=== PATIENT | male | born 1950 | race American Indian/Alaskan Native ===

== ENCOUNTER 2017-02-02 04:08 | Emergency (ER) | payer MEDICARE, OTHER ==
[2017-02-02] MEDS ORDERED: Albuterol/Ipratropium 3.0-0.5 MG/3 ML Neb Soln NEB ONE (04:23)
--- NOTE | 2017-02-02 04:29 | EDM.PDOC ---
ED HPI GENERAL MEDICAL PROBLEM - General Chief Complaint: Respiratory Problem Stated Complaint: DIFFICULTY BREATHING Time Seen by Provider: 02/02/17 04:24 Source of Information: Reports: Patient History Limitations: Reports: No Limitations - History of Present Illness INITIAL COMMENTS - FREE TEXT/NARRATIVE: states having problem breathing all week, states unable to cough because unable get air out feels like breathing through a straw. saw clinic yesterday taking z- jyoti+albut inhaler+phen/cod+tessalon. not getting any better seems to be getting worse tonight. denies CP. appetite normal. - Related Data Allergies Allergy/AdvReac Type Severity Reaction Status Date / Time No Known Allergies Allergy Verified 02/02/17 04:16 ED ROS GENERAL - Review of Systems Review Of Systems: ROS reveals no pertinent complaints other than HPI. ED EXAM, GENERAL - Physical Exam Exam: See Below Exam Limited By: No Limitations General Appearance: Alert, WD/WN, Mild Distress, Other (looks distraught) Ears: Hearing Grossly Normal Throat/Mouth: Normal Voice, No Airway Compromise, Inflammation Head: Atraumatic Neck: Non-Tender, Full Range of Motion Respiratory/Chest: No Respiratory Distress, No Accessory Muscle Use, Rhonchi. No: Decreased Breath Sounds, Stridor Course - Vital Signs Last Recorded V/S: Last Vital Signs Temp 36.3 C 02/02/17 04:12 Pulse 62 02/02/17 04:12 Resp 18 02/02/17 04:12 BP 125/81 02/02/17 04:12 Pulse Ox 99 02/02/17 04:12 - Orders/Labs/Meds Orders: Active Orders 24 hr Category Date Time Status RT Aerosol Therapy [RC] ASDIRECTED Care 02/02/17 04:23 Active Chest 2V [CR] Urgent Exams 02/02/17 04:23 Taken Meds: Medications Discontinued Medications Generic Name Dose Route Start Last Admin Trade Name Freq PRN Reason Stop Dose Admin Albuterol/Ipratropium 3 ml 02/02/17 04:23 02/02/17 04:28 Duoneb 3.0-0.5 Mg/3 Ml NEB 02/02/17 04:24 3 ml ONETIME ONE Administration Methylprednisolone Sodium Succinate 125 mg 02/02/17 05:15 Solu-Medrol IM 02/02/17 05:16 ONETIME ONE Penicillin G Procaine/Benzathine 1.2 millunits 02/02/17 05:01 02/02/17 05:07 Bicillin C-R 600/600 IM 02/02/17 05:02 1.2 millunits ONETIME ONE Administration - Re-Assessments/Exams Free Text/Narrative Re-Assessment/Exam: 02/02/17 05:16 results discussed with pt who is feeling better post duoneb. Departure - Departure Time of Disposition: 05:17 Disposition: Home, Self-Care 01 Condition: Good Clinical Impression: Strep throat, Bronchospasm with bronchitis, acute - Discharge Information Instructions: Sore Throat, [id number] Forms: ED Department Discharge Additional Instructions: 1) continue current meds 2) don't sleep flat at night 3) avoid solid foods and scratchy foods 4) recheck as needed rx given; medrol dospak - My Orders Last 24 Hours: My Active Orders 02/02/17 04:23 RT Aerosol Therapy [RC] ASDIRECTED Chest 2V [CR] Urgent - Assessment/Plan Last 24 Hours: My Active Orders 02/02/17 04:23 RT Aerosol Therapy [RC] ASDIRECTED Chest 2V [CR] Urgent
[2017-02-02] MEDS ORDERED: Penicillin G Benzathine/Procaine 600-600 1.2 Millunits/2 ML Syringe IM ONE (05:01)
[2017-02-02] MEDS ORDERED: methylPREDNISolone Sodium Succinate 125 MG/2 ML SDV IM ONE (05:15)
== END 2017-02-02 05:38 | disposition home or self-care (01) ==
LOC: DL.ED 04:08
DX: J20.9 Acute bronchitis, unspecified (principal); J02.0 Streptococcal pharyngitis
CPT/HCPCS: 71020; 87430; 94640; 96372; 99285; J0558; J2930; 99283

== ENCOUNTER 2019-03-07 10:04 | Emergency (ER) | payer MEDICARE, OTHER ==
[2019-03-07 10:53] LABS: ANION GAP 12.4; CHLORIDE,CL 100 mmol/L (101-111); SODIUM,NA 135 mmol/L (135-145)
--- NOTE | 2019-03-07 10:53 | CT ---
EXAMINATION: Head wo Cont SEX: Male AGE: 68 years CLINICAL HISTORY: 68-year-old 217 pound hypertensive male severe left frontal HEADACHE, over the eye (blood pressure 165/91) who had MRI of the brain 26 January 2011 ("microvascular ischemia cerebral white matter") Scan technique: Volume acquisition of data emergency unenhanced CT scan of the head and brain obtained with patient lying supine on the Siemens multislice scanner [place], [place]. All data archived in the PACS system for storage, reformatting axial/sagittal/coronal planes and study (bone/brain windows). Interpretation: 1. Symmetric atrophy with underlying mirror-image normal ventricular system and scattered microvascular ischemic lesions periventricular white matter both cerebral hemispheres UNCHANGED except for modalities since MRI exam 26 January 2011. 2. No new supratentorial or posterior fossa mass lesion. No hydrocephalus. Physiologic calcifications. 3. No new acute infarct or edema, encephalomalacia, or arachnoid cyst. 4. No sign of acute intracerebral/intraventricular/subarachnoid bleed. 5. Symmetric clear pneumatization of the paranasal and mastoid sinuses. Uniformly thick bony calvarium without sign of skull fracture, underlying brain contusion or epidural/subdural hematoma. 6. Cerebellum and brainstem unremarkable. INTERPRETATION: Chronic microvascular ischemic changes. Otherwise negative exam for age. No new intracranial mass, signs of hydrocephalus, or bleed (compared to MRI exam January 2011). 1. CONCLUSION:
--- NOTE | 2019-03-07 11:27 | EDM.PDOC ---
Scribed by Sarah Jesus 03/07/19 1049 for Chaim Stock PA ED HPI GENERAL MEDICAL PROBLEM - General Chief Complaint: Headache Stated Complaint: HEADACHE Time Seen by Provider: 03/07/19 10:15 Source of Information: Reports: Patient, RN, RN Notes Reviewed History Limitations: Reports: No Limitations - History of Present Illness INITIAL COMMENTS - FREE TEXT/NARRATIVE: Patient is a 68-year-old male who presents to the ER with an intermittent left frontal/temporal headache. This started about one month ago. The patient reports some lightheadedness today. Today, the patient reports he took an Advil x1 and Tylenol X1 about 4-5 hours ago. The patient initially went to the walk in clinic, but was sent to the ED. Onset: Gradual Duration: Constant Location: Reports: Head Quality: Reports: Ache Severity: Mild Improves with: Reports: None Worsens with: Reports: None Associated Symptoms: Reports: No Other Symptoms Headache Pain Score (Numeric/FACES): 4 - Related Data Allergies Allergy/AdvReac Type Severity Reaction Status Date / Time No Known Allergies Allergy Verified 03/07/19 10:14 Home Meds: Home Meds Lisinopril 20 mg PO DAILY 03/07/19 [History] Metoprolol Tartrate 25 mg PO BID 03/07/19 [History] Rosuvastatin [Crestor] 20 mg PO DAILY 03/07/19 [History] Past Medical History HEENT History: Reports: Cataract Cardiovascular History: Reports: High Cholesterol, Hypertension Respiratory History: Reports: None Gastrointestinal History: Reports: None Genitourinary History: Reports: None Musculoskeletal History: Reports: None Neurological History: Reports: None Psychiatric History: Reports: None Endocrine/Metabolic History: Reports: None Hematologic History: Reports: None Immunologic History: Reports: None Oncologic (Cancer) History: Reports: None Dermatologic History: Reports: None - Infectious Disease History Infectious Disease History: Reports: None - Past Surgical History Head Surgeries/Procedures: Reports: None Social & Family History - Family History Family Medical History: Noncontributory - Tobacco Use Smoking Status *Q: Never Smoker Second Hand Smoke Exposure: No - Recreational Drug Use Recreational Drug Use: No ED ROS GENERAL - Review of Systems Review Of Systems: Comprehensive ROS is negative, except as noted in HPI. - Physical Exam Exam: See Below Exam Limited By: No Limitations General Appearance: Alert, WD/WN, No Apparent Distress Eye Exam: Bilateral Eye: EOMI, Normal Inspection, PERRL Ears: Normal External Exam, Normal Canal, Hearing Grossly Normal, Normal TMs Nose: Normal Inspection, Normal Mucosa, No Blood Throat/Mouth: Normal Inspection, Normal Lips, Normal Teeth, Normal Gums, Normal Oropharynx, Normal Voice, No Airway Compromise Head Exam: Atraumatic, Normocephalic Neck: Normal Inspection, Supple, Non-Tender, Full Range of Motion Respiratory/Chest: No Respiratory Distress, Lungs Clear, Normal Breath Sounds, No Accessory Muscle Use, Chest Non-Tender Cardiovascular: Normal Peripheral Pulses, Regular Rate, Rhythm, No Edema, No Gallop, No JVD, No Murmur, No Rub GI/Abdominal: Normal Bowel Sounds, Soft, Non-Tender, No Organomegaly, No Distention, No Abnormal Bruit, No Mass (Male) Exam: Deferred Rectal (Males) Exam: Deferred Neuro Exam (Abbreviated): Alert, Oriented, CN II-XII Intact, Normal Cognition, Normal Gait, Normal Reflexes, No Motor/Sensory Deficits Back Exam: Normal Inspection, Full Range of Motion, NT Extremities: Normal Inspection, Normal Range of Motion, Non-Tender, No Pedal Edema, Normal Capillary Refill Psychiatric: Normal Affect, Normal Mood Skin Exam: Warm, Dry, Intact, Normal Color, No Rash Course - Vital Signs Last Recorded V/S: Last Vital Signs Temp 35.7 C 03/07/19 10:07 Pulse 59 L 03/07/19 10:07 Resp 18 03/07/19 10:07 BP 165/91 H 03/07/19 10:07 Pulse Ox 97 03/07/19 10:07 - Orders/Labs/Meds Orders: Medication Orders Ketorolac Tromethamine (Toradol) 30 mg IM ONETIME ONE Stop: 03/07/19 11:24 Labs: Laboratory Tests 03/07/19 03/07/19 03/07/19 Range/Units 10:30 10:30 10:30 WBC 6.9 (5.0-10.0) 10^3/uL RBC 5.13 (4.6-6.2) 10^6/uL Hgb 15.8 (14.0-18.0) g/dL Hct 46.5 (40.0-54.0) % MCV 90.6 (80-100) fL MCH 30.8 (27.0-34.0) pg MCHC 34.0 (33.0-35.0) g/dL Plt Count 184 (150-450) 10^3/uL Neut % (Auto) 43.2 (42.2-75.2) % Lymph % (Auto) 45.5 (20.5-50.1) % [place] % (Auto) 7.1 (2-8) % Eos % (Auto) 3.2 H (1.0-3.0) % Baso % (Auto) 1.0 (0.0-1.0) % ESR 6 (0-15) mm/hr Sodium 135 (135-145) mmol/L Potassium 4.4 (3.6-5.0) mmol/L Chloride 100 L (101-111) mmol/L Carbon Dioxide 27.0 (21.0-31.0) mmol/L Anion Gap 12.4 BUN 17 (7-18) mg/dL Creatinine 1.0 (0.6-1.3) mg/dL Est Cr Clr Drug Dosing 71.99 mL/min Estimated GFR (MDRD) > 60 BUN/Creatinine Ratio 17.00 Glucose 114 H (74-105) mg/dL Calcium 9.3 (8.4-10.2) mg/dl Total Bilirubin 0.8 (0.2-1.0) mg/dL AST 29 (10-42) IU/L ALT 37 (10-60) IU/L Alkaline Phosphatase 50 (42-121) IU/L C-Reactive Protein (0.0-1.3) mg/dL Total Protein 7.5 (6.7-8.2) g/dl Albumin 4.3 (3.2-5.5) g/dl Globulin 3.2 Albumin/Globulin Ratio 1.34 /30/19 Range/Units 10:30 WBC (5.0-10.0) 10^3/uL RBC (4.6-6.2) 10^6/uL Hgb (14.0-18.0) g/dL Hct (40.0-54.0) % MCV (80-100) fL MCH (27.0-34.0) pg MCHC (33.0-35.0) g/dL Plt Count (150-450) 10^3/uL Neut % (Auto) (42.2-75.2) % Lymph % (Auto) (20.5-50.1) % [place] % (Auto) (2-8) % Eos % (Auto) (1.0-3.0) % Baso % (Auto) (0.0-1.0) % ESR (0-15) mm/hr Sodium (135-145) mmol/L Potassium (3.6-5.0) mmol/L Chloride (101-111) mmol/L Carbon Dioxide (21.0-31.0) mmol/L Anion Gap BUN (7-18) mg/dL Creatinine (0.6-1.3) mg/dL Est Cr Clr Drug Dosing mL/min Estimated GFR (MDRD) BUN/Creatinine Ratio Glucose (74-105) mg/dL Calcium (8.4-10.2) mg/dl Total Bilirubin (0.2-1.0) mg/dL AST (10-42) IU/L ALT (10-60) IU/L Alkaline Phosphatase (42-121) IU/L C-Reactive Protein 0.6 (0.0-1.3) mg/dL Total Protein (6.7-8.2) g/dl Albumin (3.2-5.5) g/dl Globulin Albumin/Globulin Ratio Meds: Medications Generic Name Dose Route Start Last Admin Trade Name Freq PRN Reason Stop Dose Admin Ketorolac Tromethamine 30 mg 03/07/19 11:23 Toradol IM 03/07/19 11:24 ONETIME ONE Departure - Departure Time of Disposition: 11:24 Disposition: Home, Self-Care 01 Condition: Fair Clinical Impression: Headache Qualifiers: Headache type: unspecified Headache chronicity pattern: chronic headache Intractability: intractable Qualified Code(s): R51 - Headache - Discharge Information *PRESCRIPTION DRUG MONITORING PROGRAM REVIEWED*: Not Applicable *COPY OF PRESCRIPTION DRUG MONITORING REPORT IN PATIENT TASHA: Not Applicable Instructions: General Headache Without Cause Forms: ED Department Discharge Care Plan Goals: The patient was advised of the examination, lab and CT results during the visit. The patient was given an injection of Toradol while in the emergency department. The patient was encouraged to follow-up with his primary care facility for continued evaluation and further management. If the patient has any additional symptoms or concerns, the patient should either return to the emergency department or visit his primary care facility. I have read and agree with the documentation that has been completed regarding this visit. By signing this record, I attest that the documentation was completed in my physical presence and is an accurate record of the encounter.
[2019-03-07] MEDS: Ketorolac 30 MG/ML SDV IM ONE (11:37)
== END 2019-03-07 11:39 | disposition home or self-care (01) ==
LOC: DL.ED 10:04
DX: R51 Headache (principal); I10 Essential (primary) hypertension; E78.00 Pure hypercholesterolemia, unspecified; Z79.899 Other long term (current) drug therapy
CPT/HCPCS: 36415; 70450; 80053; 85025; 85651; 86140; 96372; 99284; J1885; 99283

== ENCOUNTER 2021-02-14 19:49 | Emergency (ER) | payer MEDICARE, OTHER ==
--- NOTE | 2021-02-14 20:29 | CR ---
PROCEDURE INFORMATION: Exam: XR Chest Exam date and time: 02/14/2021 8:09 PM Age: 70 years old Clinical indication: Pain; Other: Chest; Additional info: Chest pain, SOB TECHNIQUE: Imaging protocol: XR of the chest. Views: 1 view. COMPARISON: CR Chest 2V 02/02/2017 4:47 AM FINDINGS: Lungs: Lungs are clear bilaterally. Pleural spaces: No pleural effusion. No pneumothorax. Heart/Mediastinum: Stable mild enlargement of the cardiac silhouette. Mediastinal contours are unremarkable. Vasculature: Stable vascular calcifications in the aorta. Bones/joints: Unremarkable for age. IMPRESSION: 1. No acute cardiopulmonary process. 2. Incidental/nonacute findings are listed in the report.
--- NOTE | 2021-02-14 20:48 | EDM.PDOC ---
ED HPI GENERAL MEDICAL PROBLEM - General Chief Complaint: Respiratory Problem Stated Complaint: TIGHT CHEST HARD TO BREATHE WITH INHALER Time Seen by Provider: 02/14/21 20:46 Source of Information: Reports: Patient, RN History Limitations: Reports: No Limitations - History of Present Illness INITIAL COMMENTS - FREE TEXT/NARRATIVE: ED ambulatory with c/o 2-3 day hx of cough congestion, feeling like not getting enough air in. Similar one year ago. Tried inhaler and only lasted about an hour then symptoms returned. no hx COPD No chest pain. No nausea vomiting or diarrhea. throat mild soreness from coughing. Vaccinated x 2 No prior COVID, No known exposure to any one who has been ill. Non smoker. - Related Data Allergies Allergy/AdvReac Type Severity Reaction Status Date / Time No Known Allergies Allergy Verified 02/14/21 19:59 Home Meds: Home Meds Metoprolol Tartrate 25 mg PO BID 03/07/19 [History] Rosuvastatin [Crestor] 20 mg PO DAILY 03/07/19 [History] lisinopriL [Lisinopril] 20 mg PO DAILY 03/07/19 [History] Acetaminophen 500 mg PO Q6H PRN 06/06/20 [History] Albuterol Sulfate [Proair Hfa] 2 puff INH ASDIRECTED 06/06/20 [History] Aspirin [Halfprin] 81 mg PO DAILY 06/06/20 [History] Past Medical History HEENT History: Reports: Cataract Cardiovascular History: Reports: High Cholesterol, Hypertension Respiratory History: Reports: None Gastrointestinal History: Reports: None, Colon Polyp, PUD Other Gastrointestinal History: HX OF GASTRIC ULCER. HX OF HPYLORI INFECTION. HX OF TUBULAR ADENOMA Genitourinary History: Reports: None Musculoskeletal History: Reports: None Neurological History: Reports: CVA Psychiatric History: Reports: Depression Endocrine/Metabolic History: Reports: None Hematologic History: Reports: None Immunologic History: Reports: None Oncologic (Cancer) History: Reports: None Dermatologic History: Reports: None - Infectious Disease History Infectious Disease History: Reports: None - Past Surgical History Head Surgeries/Procedures: Reports: None HEENT Surgical History: Reports: LASIK GI Surgical History: Reports: Colonoscopy, EGD, Polypectomy Musculoskeletal Surgical History: Reports: Arthroscopic Knee Social & Family History - Family History Family Medical History: No Pertinent Family History - Tobacco Use Tobacco Use Status *Q: Never Tobacco User Second Hand Smoke Exposure: No - Recreational Drug Use Recreational Drug Use: No ED ROS GENERAL - Review of Systems Review Of Systems: Comprehensive ROS is negative, except as noted in HPI. ED EXAM, GENERAL - Physical Exam Exam: See Below Exam Limited By: No Limitations General Appearance: Alert, Mild Distress Eye Exam: Bilateral Eye: EOMI, PERRL Ears: Normal External Exam, Hearing Grossly Normal, Normal TMs Nose: Normal Inspection Throat/Mouth: Normal Inspection Head: Atraumatic, Normocephalic Neck: Normal Inspection Respiratory/Chest: Decreased Breath Sounds, Crackles (left mid). No: Wheezing Cardiovascular: Normal Peripheral Pulses, Regular Rate, Rhythm, No Edema GI/Abdominal: Normal Bowel Sounds, Soft, Non-Tender Back Exam: Full Range of Motion Extremities: Normal Range of Motion Neurological: Alert, Oriented, Normal Cognition Psychiatric: Normal Affect, Normal Mood Skin Exam: Warm, Dry, Intact, Normal Color #1 Interpretation EKG Date: 02/14/21 Time: 19:59 Rhythm: NSR Rate (Beats/Min): 70 [place]: Normal P-Wave: Present QRS: Normal ST-T: Normal Comparison: NA - No Prior EKG Course - Vital Signs Last Recorded V/S: Last Vital Signs Temp 97.3 F 02/14/21 19:54 Pulse 72 02/14/21 22:36 Resp 18 02/14/21 19:54 BP 177/102 H 02/14/21 19:54 Pulse Ox 96 02/14/21 19:54 - Orders/Labs/Meds Orders: Active Orders 24 hr Category Date Time Status CULTURE BLOOD [BC] Stat Lab 02/14/21 20:15 Received Labs: Laboratory Tests 02/14/21 02/14/21 02/14/21 Range/Units 19:57 20:15 20:15 WBC 8.5 (5.0-10.0) 10^3/uL RBC 5.10 (4.6-6.2) 10^6/uL Hgb 15.5 (14.0-18.0) g/dL Hct 46.2 (40.0-54.0) % MCV 90.6 (80-100) fL MCH 30.4 (27.0-34.0) pg MCHC 33.5 (33.0-35.0) g/dL Plt Count 174 (150-450) 10^3/uL Neut % (Auto) 59.3 (42.2-75.2) % Lymph % (Auto) 27.9 (20.5-50.1) % [place] % (Auto) 9.7 H (2-8) % Eos % (Auto) 2.5 (1.0-3.0) % Baso % (Auto) 0.6 (0.0-1.0) % PT (9.0-12.0) SEC INR (0.9-1.2) Sodium 143 (136-145) mmol/L Potassium 4.6 (3.5-5.1) mmol/L Chloride 106 (98-107) mmol/L Carbon Dioxide 27 (21-32) mmol/L Anion Gap 14.6 H (7-13) mEq/L BUN 11 (7-18) mg/dL Creatinine 1.19 (0.70-1.30) mg/dL Est Cr Clr Drug Dosing 58.79 mL/min Estimated GFR (MDRD) > 60 BUN/Creatinine Ratio 9.2 (No establ ref range) Glucose 133 H (70-99) mg/dL Lactic Acid (0.4-2.0) mmol/L Calcium 8.8 (8.5-10.1) mg/dL Magnesium 2.1 (1.8-2.4) mg/dL Total Bilirubin 0.4 (0.2-1.0) mg/dL AST 47 H (15-37) U/L ALT 83 H (16-63) U/L Alkaline Phosphatase 101 (46-116) U/L Troponin I High Sens 19 (<=76) pg/mL B-Natriuretic Peptide 23 (0-100) pg/ml Total Protein 7.2 (6.4-8.2) g/dL Albumin 3.5 (3.4-5.0) g/dL Globulin 3.7 Albumin/Globulin Ratio 0.9 Influenza Type A RNA Negative (NEGATIVE) Influenza Type B RNA Negative (NEGATIVE) SARS-CoV-2 RNA (LUIS CARLOS) Negative (NEGATIVE) 02/14/21 02/14/21 Range/Units 20:15 20:15 WBC (5.0-10.0) 10^3/uL RBC (4.6-6.2) 10^6/uL Hgb (14.0-18.0) g/dL Hct (40.0-54.0) % MCV (80-100) fL MCH (27.0-34.0) pg MCHC (33.0-35.0) g/dL Plt Count (150-450) 10^3/uL Neut % (Auto) (42.2-75.2) % Lymph % (Auto) (20.5-50.1) % [place] % (Auto) (2-8) % Eos % (Auto) (1.0-3.0) % Baso % (Auto) (0.0-1.0) % PT 11.6 (9.0-12.0) SEC INR 1.2 (0.9-1.2) Sodium (136-145) mmol/L Potassium (3.5-5.1) mmol/L Chloride (98-107) mmol/L Carbon Dioxide (21-32) mmol/L Anion Gap (7-13) mEq/L BUN (7-18) mg/dL Creatinine (0.70-1.30) mg/dL Est Cr Clr Drug Dosing mL/min Estimated GFR (MDRD) BUN/Creatinine Ratio (No establ ref range) Glucose (70-99) mg/dL Lactic Acid 1.0 (0.4-2.0) mmol/L Calcium (8.5-10.1) mg/dL Magnesium (1.8-2.4) mg/dL Total Bilirubin (0.2-1.0) mg/dL AST (15-37) U/L ALT (16-63) U/L Alkaline Phosphatase (46-116) U/L Troponin I High Sens (<=76) pg/mL B-Natriuretic Peptide (0-100) pg/ml Total Protein (6.4-8.2) g/dL Albumin (3.4-5.0) g/dL Globulin Albumin/Globulin Ratio Influenza Type A RNA (NEGATIVE) Influenza Type B RNA (NEGATIVE) SARS-CoV-2 RNA (LUIS CARLOS) (NEGATIVE) Meds: Medications Discontinued Medications Generic Name Dose Route Start Last Admin Trade Name Freq PRN Reason Stop Dose Admin Albuterol/Ipratropium 3 ml 02/14/21 22:03 02/14/21 22:26 Albuterol/Ipratropium 3.0-0.5 Mg/3 Ml Neb Soln NEB 02/14/21 22:04 3 ml ONETIME ONE Administration Methylprednisolone Sodium Succinate 125 mg 02/14/21 22:03 02/14/21 22:26 Methylprednisolone Sodium Succinate 125 Mg/2 Ml Sdv IVPUSH 02/14/21 22:04 125 mg ONETIME ONE Administration - Re-Assessments/Exams Free Text/Narrative Re-Assessment/Exam: 02/15/21 01:52 Improved following neb. Departure - Departure Time of Disposition: 23:13 Disposition: Home, Self-Care 01 Condition: Good Clinical Impression: Bronchospasm with bronchitis, acute - Discharge Information *PRESCRIPTION DRUG MONITORING PROGRAM REVIEWED*: No *COPY OF PRESCRIPTION DRUG MONITORING REPORT IN PATIENT TASHA: No Instructions: Acute Bronchitis, Adult, [id number] Forms: ED Department Discharge Additional Instructions: azithromycin 250mg two day one then one daily x 4 days prednisone 20mg 2 x 3 day then 1 x 3 days clinic follow up next week humidification tylenol 500mg every 4 hours as needed for fever albuterol inhaler 2 puffs every 4 hours as needed Sepsis Event Note (ED) - Focused Exam Vital Signs: Vital Signs Temp Pulse Resp BP Pulse Ox 02/14/21 22:36 72 02/14/21 19:54 97.3 F 69 18 177/102 H 96 - My Orders Last 24 Hours: My Active Orders 02/14/21 20:15 CULTURE BLOOD [BC] Stat - Assessment/Plan Last 24 Hours: My Active Orders 02/14/21 20:15 CULTURE BLOOD [BC] Stat
[2021-02-14 21:01] LABS: ANION GAP 14.6 mEq/L (7-13); CHLORIDE,CL 106 mmol/L (98-107); SODIUM,NA 143 mmol/L (136-145)
[2021-02-14 21:34] LABS: CORONAVIRUS COVID-19 NAA NEGATIVE (NEGATIVE)
[2021-02-14] MEDS ORDERED: Albuterol/Ipratropium 3.0-0.5 MG/3 ML Neb Soln NEB ONE (22:03)
[2021-02-14] MEDS ORDERED: methylPREDNISolone Sodium Succinate 125 MG/2 ML SDV IVPUSH ONE (22:03)
== END 2021-02-14 23:20 | disposition home or self-care (01) ==
LOC: DL.ED 19:49
DX: J20.9 Acute bronchitis, unspecified (principal); E78.00 Pure hypercholesterolemia, unspecified; I10 Essential (primary) hypertension; Z86.73 Personal history of transient ischemic attack (TIA), and cerebral infarction without residual deficits; Z20.822 Contact with and (suspected) exposure to COVID-19; Z79.82 Long term (current) use of aspirin; Z79.899 Other long term (current) drug therapy
CPT/HCPCS: 0240U; 36415; 71045; 80053; 83605; 83735; 83880; 84484; 85025; 85610; 87040; 93005; 94640; 96374; 99285; J2930; J7620-GY

== ENCOUNTER 2022-11-29 17:02 | Emergency (ER) | payer MEDICARE, OTHER ==
[2022-11-29] MEDS ORDERED: Sodium Chloride 0.9% 10 ML Syringe FLUSH PRN (17:29)
[2022-11-29 17:42] LABS: BASOPHILS PERCENT AUTO 0.3 % (0.0-1.0); EOSINOPHILS PERCENT AUTO 0.1 % (1.0-3.0); HEMOGLOBIN 15.5 g/dL (14.0-18.0); LYMPHOCYTES PERCENT AUTO 13.9 % (20.5-50.1); MEAN CORPUSCULAR HEMOGLOBIN 30.4 pg (27.0-34.0); MEAN CORPUSCULAR HGB CONC 33.7 g/dL (33.0-35.0); MEAN CORPUSCULAR VOLUME 90.2 fL (80-100); MONOCYTES PERCENT AUTO 7.5 % (2-8); NEUTROPHILS PERCENT AUTO 78.2 % (42.2-75.2); PLATELET COUNT,PLT 161 10^3/uL (150-450); WHITE BLOOD CELL COUNT,WBC 14.6 10^3/uL (5.0-10.0)
[2022-11-29 18:01] LABS: A/G RATIO 0.9; ALBUMIN 3.5 g/dL (3.4-5.0); ANION GAP 12.3 mEq/L (7-13); BILIRUBIN TOTAL 0.9 mg/dL (0.2-1.0); BUN/CREATININE RATIO 13.2 (No establ ref range); CREATININE 1.14 mg/dL (0.70-1.30); EST CRCL DRUG DOSING (CG) 59.59 mL/min; POTASSIUM,K 4.3 mmol/L (3.5-5.1); PROTEIN TOTAL,TP 7.6 g/dL (6.4-8.2)
[2022-11-29] MEDS ORDERED: Sodium Chloride 0.9% 1,000 ML IV ONE (18:12)
[2022-11-29 18:58] LABS: APPEARANCE,URINE CLOUDY (CLEAR); BILIRUBIN,URINE NEGATIVE (NEGATIVE); COLOR,URINE DARK YELLOW (YELLOW); GLUCOSE,URINE NEGATIVE (NEGATIVE); KETONES,URINE NEGATIVE (NEGATIVE); LEUKOCYTE ESTERASE,URINE LARGE (NEGATIVE); NITRITE,URINE POSITIVE (NEGATIVE); OCCULT BLOOD,URINE LARGE (NEGATIVE); PROTEIN,URINE >=300 (NEGATIVE)
[2022-11-29] MEDS ORDERED: cefTRIAXone 1 GM Vial IVPUSH ONE (19:00)
[2022-11-29 19:05] LABS: BACTERIA,URINE MANY /HPF (0-FEW/HPF); EPITHELIAL CELLS,URINE OCCASIONAL /HPF (NOT SEEN); WBC,URINE 50-75 /HPF (0-5/HPF)
== END 2022-11-29 20:11 ==
LOC: DL.ED 17:02
DX: N30.01 Acute cystitis with hematuria (principal); D72.829 Elevated white blood cell count, unspecified; E78.00 Pure hypercholesterolemia, unspecified; I10 Essential (primary) hypertension; Z79.899 Other long term (current) drug therapy; Z79.82 Long term (current) use of aspirin; Z20.822 Contact with and (suspected) exposure to COVID-19
CPT/HCPCS: 36415; 71045; 80053; 81001; 82947; 85025; 87086; 87088; 87186; 87804; 96361; 96374; 99284; 99284-25; J0696; J3490; J7030; U0002